=== PATIENT | female | born 1965 | race Caucasian/White ===

== ENCOUNTER → 2016-06-16 | Outpatient (CLI) | payer OTHER | LOC: WI 14:00 | PROVIDERS: ATTEND Nurse Practitioner Family | DX: Z12.31 Encounter for screening mammogram for malignant neoplasm of breast (principal) | CPT/HCPCS: 77067; G0202 ==

== ENCOUNTER → 2017-03-19 | Outpatient (CLI) | payer OTHER ==
--- NOTE | 2017-03-19 14:35 | WOMENS IMAGING REPORT ---
EXAM DESCRIPTION: BONE DENSITY HIP/SPINE COMPLETED DATE/TIME: 03/19/2017 2:03 pm REASON FOR STUDY: UNSPECIFIED MENOPAUSAL PERIMENOPAUSAL DISORDER; N95.9 N95.9 UNSPECIFIED MENOPAUSA L AND PERIMENOPAUSAL DISORDER COMPARISON: None. TECHNIQUE: Dual-Energy X-ray Absorptiometry (DEXA) of the AP Spine and Hip. LIMITATIONS: None. FINDINGS: LUMBAR SPINE: The bone mineral density (BMD) measured from L1-L4 in the AP projection correlates with a T-score of 1.1, which is normal as defined by the World Health Organization. HIP: The bone mineral density (BMD) measured in the left hip correlates with a T-score of -0.5, which is n ormal as defined by the World Health Organization. IMPRESSION: 1. LUMBAR SPINE: Normal 2. HIP: Normal COMMENT: The World Health Organization defines low BMD as follows: T-score: Normal: Greater than -1.0 Osteopenia: Between -1.0 and -2.5 Osteoporosis: Less than -2.5 without fractures Established osteoporosis: Less than -2.5 with fractures In general, you may wish to consider: Diagnosis Treatment Follow-up DEXA Normal BMD Prevention 2-3 years Osteopenia Prevention/Therapy 1-2 years Osteoporosis Therapy Yearly TECHNICAL DOCUMENTATION: JOB ID: [id number] [employer]- All Rights Reserved
== END ==
LOC: WI 13:38
PROVIDERS: ATTEND Family Medicine
DX: N95.9 Unspecified menopausal and perimenopausal disorder (principal)
CPT/HCPCS: 77080

== ENCOUNTER → 2018-07-09 | Outpatient (CLI) | payer OTHER ==
[2018-07-09 08:05] LABS: ALANINE AMINOTRANSFERASE 29 U/L (9-52); ALBUMIN 4.3 g/dL (3.5-5.0); ALKALINE PHOSPHATASE 93 U/L (38-126); ANION GAP 9 (5-19); ASPARTATE AMINO TRANSFERASE 24 U/L (14-36); BILIRUBIN,DIRECT 0.1 mg/dL (0.0-0.4); BILIRUBIN,TOTAL 0.6 mg/dL (0.2-1.3); BLOOD UREA NITROGEN 9 mg/dL (7-20); CARBON DIOXIDE 28 mmol/L (22-30); CHLORIDE 101 mmol/L (98-107); CHOLESTEROL 123.29 mg/dL (0-200); GLUCOSE 97 mg/dL (75-110); POTASSIUM 4.2 mmol/L (3.6-5.0); SODIUM 137.9 mmol/L (137-145); TOTAL PROTEIN 7.1 g/dL (6.3-8.2); TRIGLYCERIDES 83 mg/dL (<150)
[2018-07-09 08:16] LABS: DIRECT LDL 48 mg/dL (<100)
== END ==
LOC: LAB 07:24
PROVIDERS: ATTEND Physician Assistant
DX: E78.5 Hyperlipidemia, unspecified (principal); I10 Essential (primary) hypertension; Z79.899 Other long term (current) drug therapy
CPT/HCPCS: 36415; 80048; 80061; 80076

== ENCOUNTER → 2018-10-15 | Outpatient (CLI) | payer OTHER ==
[2018-10-15 11:42] LABS: ALANINE AMINOTRANSFERASE 26 U/L (9-52); ALKALINE PHOSPHATASE 92 U/L (38-126); ANION GAP 10 (5-19); ASPARTATE AMINO TRANSFERASE 26 U/L (14-36); BILIRUBIN,DIRECT 0.3 mg/dL (0.0-0.4); BILIRUBIN,TOTAL 0.7 mg/dL (0.2-1.3); BLOOD UREA NITROGEN 9 mg/dL (7-20); CALCIUM 9.7 mg/dL (8.4-10.2); CARBON DIOXIDE 27 mmol/L (22-30); CHLORIDE 103 mmol/L (98-107); CHOLESTEROL 141.83 mg/dL (0-200); GLUCOSE 92 mg/dL (75-110); POTASSIUM 4.2 mmol/L (3.6-5.0); SODIUM 139.6 mmol/L (137-145); TOTAL PROTEIN 7.3 g/dL (6.3-8.2); TRIGLYCERIDES 91 mg/dL (<150)
[2018-10-15 11:53] LABS: DIRECT LDL 65 mg/dL (<100)
== END ==
LOC: LAB 11:01
PROVIDERS: ATTEND Physician Assistant
DX: E78.5 Hyperlipidemia, unspecified (principal); I10 Essential (primary) hypertension; Z79.899 Other long term (current) drug therapy
CPT/HCPCS: 36415; 80048; 80061; 80076

== ENCOUNTER → 2019-01-31 | Outpatient (CLI) | payer OTHER ==
--- NOTE | 2019-02-03 16:05 | WOMENS IMAGING REPORT ---
EXAM DESCRIPTION: 3D SCREENING MAMMO BILAT COMPLETED DATE/TIME: 01/31/2019 3:23 pm REASON FOR STUDY: Z12.31 SCREENING MAMMO Z12.31 ENCNTR SCREEN MAMMOGRAM FOR MALIGNANT NEOPLASM OF B RE COMPARISON: [id number] EXAM PARAMETERS: Views: Standard craniocaudal and mediolateral oblique views of each breast recorded using digital acquisition and breast tomosynthesis. Read with the assistance of CAD. .[facility] - [employer] Assistant Version 9.2 LIMITATIONS: None. FINDINGS: No suspicious masses, suspicious calcifications or architectural distortion. No areas of c oncern. IMPRESSION: NEGATIVE MAMMOGRAM. BIRADS 1. BREAST DENSITY: a. The breasts are almost entirely fatty. BIRAD: ASSESSMENT: 1 NEGATIVE RECOMMENDATION: ROUTINE SCREENING COMMENT: The patient has been notified of the results by letter per MQSA requirements. Additional no tification policies are in place for contacting patient with suspicious or incomplete findings. Quality ID #225: The [employer] recommends an annual screening mammogram for women aged 40 years or over. This facility utilizes a reminder system to ensure that all patients receive reminder letters, and/or direct phone calls for appointments. This includes reminders for routine scr eening mammograms, diagnostic mammograms, or other Breast Imaging Interventions when appropriate. Th is patient will be placed in the appropriate reminder system. TECHNICAL DOCUMENTATION: FINDING NUMBER: (1) ASSESSMENT: (1) JOB ID: [id number] [employer]- All Rights Reserved Reading location - IP/workstation name: [email or web address]
== END ==
LOC: WI 15:00
PROVIDERS: ATTEND Obstetrics & Gynecology
DX: Z12.31 Encounter for screening mammogram for malignant neoplasm of breast (principal)
CPT/HCPCS: 77063; 77067

== ENCOUNTER → 2019-02-08 | Outpatient (CLI) | payer OTHER ==
[2019-02-08 12:28] LABS: ALBUMIN 4.3 g/dL (3.5-5.0); ALKALINE PHOSPHATASE 98 U/L (38-126); ANION GAP 10 (5-19); ASPARTATE AMINO TRANSFERASE 26 U/L (14-36); BILIRUBIN,DIRECT 0.1 mg/dL (0.0-0.4); BILIRUBIN,TOTAL 0.6 mg/dL (0.2-1.3); BLOOD UREA NITROGEN 11 mg/dL (7-20); CALCIUM 9.8 mg/dL (8.4-10.2); CARBON DIOXIDE 27 mmol/L (22-30); CHLORIDE 105 mmol/L (98-107); CHOLESTEROL 117.87 mg/dL (0-200); GLUCOSE 91 mg/dL (75-110); POTASSIUM 4.9 mmol/L (3.6-5.0); TOTAL PROTEIN 7.5 g/dL (6.3-8.2); TRIGLYCERIDES 59 mg/dL (<150)
[2019-02-08 12:39] LABS: DIRECT LDL 50 mg/dL (<100)
== END ==
LOC: OD 10:44
PROVIDERS: ATTEND Physician Assistant
DX: E78.5 Hyperlipidemia, unspecified (principal); I10 Essential (primary) hypertension; Z79.899 Other long term (current) drug therapy
CPT/HCPCS: 36415; 80048; 80061; 80076

== ENCOUNTER → 2019-07-05 | Outpatient (CLI) | payer OTHER ==
[2019-07-05 12:51] LABS: ALBUMIN 4.5 g/dL (3.5-5.0); ALKALINE PHOSPHATASE 107 U/L (38-126); ANION GAP 10 (5-19); ASPARTATE AMINO TRANSFERASE 30 U/L (14-36); BILIRUBIN,DIRECT 0.2 mg/dL (0.0-0.4); BILIRUBIN,TOTAL 0.9 mg/dL (0.2-1.3); BLOOD UREA NITROGEN 12 mg/dL (7-20); CALCIUM 9.9 mg/dL (8.4-10.2); CARBON DIOXIDE 28 mmol/L (22-30); CHLORIDE 100 mmol/L (98-107); CHOLESTEROL 138.12 mg/dL (0-200); GLUCOSE 91 mg/dL (75-110); POTASSIUM 4.2 mmol/L (3.6-5.0); TOTAL PROTEIN 7.6 g/dL (6.3-8.2); TRIGLYCERIDES 73 mg/dL (<150)
[2019-07-05 13:02] LABS: DIRECT LDL 62 mg/dL (<100)
== END ==
LOC: OD 11:09
PROVIDERS: ATTEND Physician Assistant
DX: M79.606 Pain in leg, unspecified (principal); E78.5 Hyperlipidemia, unspecified; I10 Essential (primary) hypertension; Z83.2 Family history of diseases of the blood and blood-forming organs and certain disorders involving the immune mechanism; Z79.899 Other long term (current) drug therapy
CPT/HCPCS: 36415; 80048; 80061; 80076; 85379

== ENCOUNTER 2019-07-08 09:48 | Emergency (ER) | payer OTHER ==
--- NOTE | 2019-07-08 09:58 | ER Document Report ---
ED Medical Screen (RME) - General Chief Complaint: Leg Pain Stated Complaint: POSSIBLE BLOOD CLOTS - DR REFERRED Time Seen by Provider: 07/08/19 09:54 Primary Care Provider: EZRA ALFRED PA-C [Primary Care Provider] - Follow up as needed Mode of Arrival: Ambulatory Information source: Patient Notes: 54-year-old female presented to ED for complaint of pain behind her left breast and pain behind both legs and calves. She states that started 3 weeks ago and has gotten much worse. 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 She states she went to urgent care and they sent her to the emergency room. She is alert oriented respirations regular nonlabored speaking in full sentences. Last surgery was in February 2019 on her eye states she drove to [place] in May she states she did have a DVT about 17 years ago when she had her gallbladder taken out her tubes tied and she had a DVT at that time none since then. Her d-dimer was 0.84 yesterday at the doctor's office I have greeted and performed a rapid initial assessment of this patient. A comprehensive ED assessment and evaluation of the patient, analysis of test results and completion of medical decision making process will be conducted by an additional ED providers. TRAVEL OUTSIDE OF THE [place] IN LAST 30 DAYS: No - Related Data Allergies/Adverse Reactions: No Known Allergies Allergy (Unverified 08/01/12 16:10) Past Medical History - Past Medical History Cardiac Medical History: Reports: Hx Hypertension - PIH only Denies: Hx Coronary Artery Disease, Hx Heart Attack Pulmonary Medical History: Reports: Hx Bronchitis Denies: Hx Asthma, Hx COPD, Hx Pneumonia Neurological Medical History: Denies: Hx Cerebrovascular Accident, Hx Seizures Musculoskeltal Medical History: Reports Hx Arthritis - rt shoulder - Immunizations Hx Diphtheria, Pertussis, Tetanus Vaccination: Yes Doctor's Discharge - Discharge Referrals: EZRA ALFRED PA-C [Primary Care Provider] - Follow up as needed
[2019-07-08 10:35] LABS: APPEARANCE,URINE CLEAR; BILIRUBIN,URINE NEGATIVE (NEGATIVE); COLOR,URINE YELLOW; GLUCOSE, URINE NEGATIVE (NEGATIVE); KETONES,URINE NEGATIVE (NEGATIVE); PROTEIN,URINE NEGATIVE (NEGATIVE); URINE SPECIFIC GRAVITY 1.011; UROBILINOGEN,URINE NEGATIVE mg/dL (<2.0)
--- NOTE | 2019-07-08 10:37 | RADIOLOGY REPORT (SQ) ---
EXAM DESCRIPTION: CHEST 2 VIEWS COMPLETED DATE/TIME: 07/08/2019 10:29 am REASON FOR STUDY: Chest pain behind left breast COMPARISON: 06/25/2008. EXAM PARAMETERS: NUMBER OF VIEWS: two views TECHNIQUE: Digital Frontal and Lateral radiographic views of the chest acquired. RADIATION DOSE: NA LIMITATIONS: none FINDINGS: LUNGS AND PLEURA: No opacities, masses or pneumothorax. No pleural effusion. MEDIASTINUM AND HILAR STRUCTURES: No masses or contour abnormalities. HEART AND VASCULAR STRUCTURES: Heart normal size. No evidence for failure. BONES: No acute findings. Thoracic scoliosis. HARDWARE: None in the chest. OTHER: No other significant finding. IMPRESSION: NO ACUTE RADIOGRAPHIC FINDING IN THE CHEST. TECHNICAL DOCUMENTATION: JOB ID: [id number] 2010 [employer]- All Rights Reserved Reading location - IP/workstation name: [email or web address]
[2019-07-08 10:54] LABS: ABSOLUTE BASOPHILS # (AUTO) 0.1 10^3/uL (0.0-0.2); ABSOLUTE EOSINOPHILS # (AUTO) 0.1 10^3/uL (0.0-0.6); ABSOLUTE LYMPHOCYTES (AUTO) 2.5 10^3/uL (0.5-4.7); ABSOLUTE MONOCYTES (AUTO) 0.4 10^3/uL (0.1-1.4); ABSOLUTE NEUT (AUTO) 3.2 10^3/uL (1.7-8.2); EOSINOPHILS % (AUTO) 2.3 % (0-6); HEMATOCRIT 40.6 % (36.0-47.0); HEMOGLOBIN 13.8 g/dL (12.0-15.5); LYMPHOCYTES % (AUTO) 39.7 % (13-45); MEAN CORPUSCULAR HEMOGLOBIN 29.3 pg (27.0-33.4); MEAN CORPUSCULAR HGB CONC 34.1 g/dL (32.0-36.0); MEAN CORPUSCULAR VOLUME 86 fl (80-97); MONOCYTES % (AUTO) 6.5 % (3-13); PLATELET COUNT 305 10^3/uL (150-450); RED BLOOD COUNT 4.73 10^6/uL (3.72-5.28); RED CELL DISTRIBUTION WIDTH 13.5 % (11.5-14.0); SEGMENTED NEUTROPHILS % (AUTO) 50.5 % (42-78); TOTAL CELLS COUNTED % (AUTO) 100 %; WHITE BLOOD COUNT 6.4 10^3/uL (4.0-10.5)
[2019-07-08 11:19] LABS: ALBUMIN 4.5 g/dL (3.5-5.0); ALKALINE PHOSPHATASE 108 U/L (38-126); ANION GAP 9 (5-19); ASPARTATE AMINO TRANSFERASE 28 U/L (14-36); BILIRUBIN,TOTAL 0.5 mg/dL (0.2-1.3); BLOOD UREA NITROGEN 10 mg/dL (7-20); CALCIUM 9.8 mg/dL (8.4-10.2); CARBON DIOXIDE 28 mmol/L (22-30); CHLORIDE 103 mmol/L (98-107); GLUCOSE 99 mg/dL (75-110); POTASSIUM 3.9 mmol/L (3.6-5.0); TOTAL PROTEIN 7.9 g/dL (6.3-8.2)
--- NOTE | 2019-07-08 12:13 | RADIOLOGY REPORT (SQ) ---
EXAM DESCRIPTION: VENOUS BILATERAL LOWER COMPLETED DATE/TIME: 07/08/2019 11:57 am REASON FOR STUDY: Positive d-dimer pain both calf COMPARISON: None. TECHNIQUE: Dynamic and static marroquin scale and color images acquired of both lower extremity venous sy stems. Selected spectral images acquired with additional compression and augmentation maneuvers. Imag es stored on PACS. LIMITATIONS: None. FINDINGS: RIGHT LEG COMMON FEMORAL AND FEMORAL: Normal phasicity, compression and augmentation. No visualized echogenic m aterial on marroquin scale. No defects on color images. POPLITEAL: Normal compression and augmentation. No visualized echogenic material on marroquin scale. No de fects on color images. CALF VESSELS: Normal compression and augmentation. No visualized echogenic material on marroquin scale. No defects on color image. GSV AND SSV: Normal compression. No visualized echogenic material on marroquin scale. No defects on color images. ANY DEEP VENOUS INSUFFICIENCY: No. ANY EVIDENCE OF POPLITEAL CYST: No. OTHER: No other significant finding. LEFT LEG COMMON FEMORAL AND FEMORAL: Normal phasicity, compression and augmentation. No visualized echogenic m aterial on marroquin scale. No defects on color images. POPLITEAL: Normal compression and augmentation. No visualized echogenic material on marroquin scale. No de fects on color images. CALF VESSELS: Normal compression and augmentation. No visualized echogenic material on marroquin scale. No defects on color images. GSV AND SSV: Normal compression. No visualized echogenic material on marroquin scale. No defects on color images. ANY DEEP VENOUS INSUFFICIENCY: No. ANY EVIDENCE POPLITEAL CYST: No. OTHER: No other significant finding. IMPRESSION: NO EVIDENCE DVT OR SVT IN EITHER LEG. TECHNICAL DOCUMENTATION: JOB ID: [id number] 2010 [employer]- All Rights Reserved Reading location - IP/workstation name: [email or web address]
[2019-07-08 14:07] VITALS: BP 142/70
--- NOTE | 2019-07-08 16:01 | ER Document Report ---
Entered by YENNI SOUZA SCRIBE 07/08/19 1134 Acting as scribe for:KELLIE STRANGE MD ED Extremity Problem, Lower - General Chief Complaint: Leg Pain Stated Complaint: POSSIBLE BLOOD CLOTS - DR REFERRED Time Seen by Provider: 07/08/19 09:54 Primary Care Provider: EZRA ALFRED PA-C [PHYSICIAN [employer]NER] - Follow up in 3-5 days Mode of Arrival: Ambulatory Information source: Patient Notes: This 54-year-old female patient presents to the emergency department today with complaints of a 3-week history of bilateral leg and calf pain with associated ankle/leg swelling. Patient mentions that for the last 3 months she has been transporting her back and forth to [place] for medical care, so she has been sitting in a car for extending periods of time. Patient states that she has not really noticed anything that seems to make the pain worse or better. Patient also mentions that she works 2 jobs and is on her feet all day long so she is unsure if this could be related to what is going on today. TRAVEL OUTSIDE OF THE [place] IN LAST 30 DAYS: No - Related Data Allergies/Adverse Reactions: No Known Allergies Allergy (Unverified 08/01/12 16:10) Home Medications: Carvedilol, Atorvastatin, Zyrtec, Vit D, HCTZ, Valium Past Medical History - General Information source: Patient - Social History Smoking Status: Never Smoker Cigarette use (# per day): No Frequency of alcohol use: None Drug Abuse: None Occupation: [employer] Lives with: Family Family History: Reviewed & Not Pertinent Patient has suicidal ideation: No Patient has homicidal ideation: No - Past Medical History Cardiac Medical History: Reports: Hx Hypercholesterolemia, Hx Hypertension Pulmonary Medical History: Reports: Hx Bronchitis Musculoskeletal Medical History: Reports Hx Arthritis - rt shoulder Past Surgical History: Reports: Hx Cholecystectomy, Hx Gynecologic Surgery - uterine ablation, Hx Tubal Ligation - Immunizations Hx Diphtheria, Pertussis, Tetanus Vaccination: Yes Review of Systems - Review of Systems Constitutional: No symptoms reported EENT: No symptoms reported Cardiovascular: denies: Chest pain Respiratory: denies: Short of breath Gastrointestinal: No symptoms reported Genitourinary: No symptoms reported Female Genitourinary: No symptoms reported Musculoskeletal: See HPI, Back pain, Muscle pain, Muscle stiffness, Leg swellin g, Ankle swelling Skin: No symptoms reported Hematologic/Lymphatic: No symptoms reported Neurological/Psychological: No symptoms reported -: Yes All other systems reviewed and negative Physical Exam - Vital signs Vitals: Temp Pulse Resp BP Pulse Ox 97.6 F 81 18 156/81 H 100 07/08/19 09:53 07/08/19 09:53 07/08/19 09:53 07/08/19 09:53 07/08/19 09:53 - Notes Notes: Physical Exam: General: Alert, appears well, obese. HEENT: Normocephalic. Atraumatic. PERRL. Extraocular movements intact. Oropharynx clear. Neck: Supple. Non-tender. Respiratory: No respiratory distress. Clear and equal breath sounds bilaterally. Cardiovascular: Regular rate and rhythm. Abdominal: Obese. Non-tender. No distension. Normal Bowel Sounds. Back: No gross abnormalities. Extremities: Moves all four extremities. Upper extremities: Normal inspection. Normal ROM. Lower extremities: Calves are symmetric in size and nontender bilaterally. There is trace edema to the ankles and over the pretibial area bilaterally. Neurological: Normal cognition. AAOx4. Normal speech. Psychological: Normal affect. Normal Mood. Skin: Warm. Dry. Normal color. Course - Re-evaluation Re-evalutation: 07/08/19 13:17 Venous Doppler is negative for DVT, also negative for venous insufficiency. Patient's total CK is less than 100. - Vital Signs Vital signs: Temp Pulse Resp BP Pulse Ox 97.8 F 82 18 142/70 H 99 07/08/19 14:06 07/08/19 14:06 07/08/19 14:06 07/08/19 14:06 07/08/19 14:06 - Laboratory Result Diagrams: 07/08/19 10:43 07/08/19 10:43 Laboratory results interpreted by me: 07/08/19 10:43 D-Dimer 0.78 H Discharge - Discharge Clinical Impression: Lower extremity pain, bilateral Condition: Stable Disposition: HOME, SELF-CARE Additional Instructions: The venous Doppler study was negative for blood clots or any other abnormality. Your muscle enzyme levels were in the low normal range, showing there has been no injury to the muscles that are causing your pain. Stop taking your atorvastatin for now until you can follow-up with your primary care provider and see if that helps the muscle discomfort you have been experiencing. Take Tylenol and ibuprofen for pain as needed. Elevate your feet whenever possible. Follow-up with your primary care provider sometime this week for recheck. RETURN TO THE EMERGENCY ROOM IF ANY NEW OR WORSENING SYMPTOMS. Forms: Return to Work Referrals: EZRA ALFRED PA-C [PHYSICIAN [employer]ALENT PARTNER] - Follow up in 3-5 days I personally performed the services described in the documentation, reviewed and edited the documentation which was dictated to the scribe in my presence, and it accurately records my words and actions.
== END 2019-07-08 14:07 | disposition home or self-care (01) ==
LOC: ER 09:48
DX: M79.662 Pain in left lower leg (principal); M79.661 Pain in right lower leg; M79.10 Myalgia, unspecified site; E78.00 Pure hypercholesterolemia, unspecified; I10 Essential (primary) hypertension; Z90.49 Acquired absence of other specified parts of digestive tract
CPT/HCPCS: 36415; 71046; 80053; 81001; 82550; 83690; 84484; 85025; 85379; 93970; 99284

== ENCOUNTER → 2019-10-10 | Outpatient (CLI) | payer OTHER ==
[2019-10-10 13:00] LABS: ALBUMIN 4.2 g/dL (3.5-5.0); ALKALINE PHOSPHATASE 90 U/L (38-126); ANION GAP 7 (5-19); ASPARTATE AMINO TRANSFERASE 26 U/L (14-36); BILIRUBIN,TOTAL 0.7 mg/dL (0.2-1.3); BLOOD UREA NITROGEN 9 mg/dL (7-20); CALCIUM 9.7 mg/dL (8.4-10.2); CARBON DIOXIDE 29 mmol/L (22-30); CHLORIDE 101 mmol/L (98-107); CHOLESTEROL 125.52 mg/dL (0-200); GLUCOSE 97 mg/dL (75-110); POTASSIUM 4.3 mmol/L (3.6-5.0); TOTAL PROTEIN 7.1 g/dL (6.3-8.2); TRIGLYCERIDES 82 mg/dL (<150)
[2019-10-10 13:11] LABS: DIRECT LDL 56 mg/dL (<100)
== END ==
LOC: OD 11:11
PROVIDERS: ATTEND Physician Assistant
DX: E78.5 Hyperlipidemia, unspecified (principal); I10 Essential (primary) hypertension; Z79.899 Other long term (current) drug therapy
CPT/HCPCS: 36415; 80048; 80061; 80076

== ENCOUNTER → 2020-01-17 | Outpatient (CLI) | payer OTHER ==
[2020-01-17 12:36] LABS: ALBUMIN 4.3 g/dL (3.5-5.0); ALKALINE PHOSPHATASE 100 U/L (38-126); ANION GAP 8 (5-19); ASPARTATE AMINO TRANSFERASE 27 U/L (14-36); BILIRUBIN,DIRECT 0.3 mg/dL (0.0-0.4); BILIRUBIN,TOTAL 0.9 mg/dL (0.2-1.3); BLOOD UREA NITROGEN 12 mg/dL (7-20); CALCIUM 9.8 mg/dL (8.4-10.2); CARBON DIOXIDE 28 mmol/L (22-30); CHLORIDE 102 mmol/L (98-107); CHOLESTEROL 122.39 mg/dL (0-200); GLUCOSE 97 mg/dL (75-110); POTASSIUM 4.8 mmol/L (3.6-5.0); TOTAL PROTEIN 7.2 g/dL (6.3-8.2); TRIGLYCERIDES 59 mg/dL (<150)
[2020-01-17 12:46] LABS: DIRECT LDL 45 mg/dL (<100)
== END ==
LOC: OD 11:06
PROVIDERS: ATTEND Physician Assistant
DX: E78.5 Hyperlipidemia, unspecified (principal); I10 Essential (primary) hypertension; Z79.899 Other long term (current) drug therapy
CPT/HCPCS: 36415; 80048; 80061; 80076

== ENCOUNTER → 2020-04-19 | Outpatient (CLI) | payer OTHER ==
[2020-04-19 12:21] LABS: ALBUMIN 4.1 g/dL (3.5-5.0); ALKALINE PHOSPHATASE 109 U/L (38-126); ASPARTATE AMINO TRANSFERASE 29 U/L (14-36); BILIRUBIN,DIRECT 0.1 mg/dL (0.0-0.4); BILIRUBIN,TOTAL 0.6 mg/dL (0.2-1.3); BLOOD UREA NITROGEN 9 mg/dL (7-20); CALCIUM 9.8 mg/dL (8.4-10.2); GLUCOSE 97 mg/dL (75-110); TOTAL PROTEIN 7.5 g/dL (6.3-8.2); TRIGLYCERIDES 78 mg/dL (<150)
[2020-04-19 12:26] LABS: ANION GAP 5 (5-19); CARBON DIOXIDE 31 mmol/L (22-30); CHLORIDE 102 mmol/L (98-107)
[2020-04-19 12:32] LABS: DIRECT LDL 60 mg/dL (<100)
== END ==
LOC: OD 10:51
PROVIDERS: ATTEND Physician Assistant
DX: E78.5 Hyperlipidemia, unspecified (principal); I10 Essential (primary) hypertension; Z79.899 Other long term (current) drug therapy
CPT/HCPCS: 36415; 80048; 80061; 80076